=== PATIENT | female | born 1995 | race Hispanic/Latino ===

== ENCOUNTER 2022-02-16 03:53 | Emergency (ER) | payer MEDICAID ==
[~2022-02-16] VITALS: Ht 154.9 cm; Wt 76.7 kg
[2022-02-16] MEDS ORDERED: IBUPROFEN 600 MG TABLET ONE (04:16)
[2022-02-16] MEDS ORDERED: OSELTAMIVIR PHOSPHATE 75 MG CAP PO SCH (04:30)
[2022-02-16] MEDS ORDERED: IBUPROFEN 600 MG TABLET PO ONE (04:30)
[2022-02-16] MEDS ORDERED: OSEL75 PO (04:36)
[2022-02-16] MEDS ORDERED: ONDA4TAB10 PO (04:36)
[2022-02-16 05:29] VITALS: BP 115/68
== END 2022-02-16 05:35 | disposition home or self-care (01) ==
LOC: EDH 03:53
DX: J11.1 Influenza due to unidentified influenza virus with other respiratory manifestations (principal); Z98.890 Other specified postprocedural states